=== PATIENT | female | born 1970 | race Two or more races ===

== ENCOUNTER → 2019-03-07 | Day surgery (SDC) | payer OTHER ==
[~2019-03-07] MED LIST: PERCOCET 5-3251 EACH PO; ZYRTEC10 M3 PO
== END | disposition home or self-care (01) ==
LOC: ADM 03-05 14:15 → CIR.AMB 07:05
DX: D35.1 Benign neoplasm of parathyroid gland (principal)

== ENCOUNTER 2023-06-27 06:45 | Day surgery (SDC) | payer OTHER ==
[2023-06-27] MEDS ORDERED: IBU600 MG PO (13:33)
[2023-06-27] MEDS ORDERED: AMOX1TAB5 PO (13:34)
[2023-06-27 14:42] LABS: HEMATOCRIT 37.2 % (36.0-45.00); HEMOGLOBIN 12.3 g/dL (12.0-15.00); MEAN CORPUSCULAR HEMOGLOBIN 28.8 pg (27.00-32.0); MEAN CORPUSCULAR HGB CONC 33.1 g/dl (32.0-36.0); PLATELET COUNT 226 K/uL (150-450); RED BLOOD COUNT 4.27 M/uL (4.00-6.00); RED CELL DISTRIBUTION WIDTH 13.4 % (11.5-14.5)
== END 2023-06-27 16:35 | disposition home or self-care (01) ==
LOC: CIR.AMB 06:45
PROVIDERS: ATTEND Obstetrics & Gynecology Gynecology
DX: N84.0 Polyp of corpus uteri (principal); D25.0 Submucous leiomyoma of uterus; Z20.822 Contact with and (suspected) exposure to COVID-19